=== PATIENT | female | born 1990 | race Caucasian/White ===

== ENCOUNTER 2017-01-08 20:26 | Emergency (ER) | payer MEDICAID ==
[~2017-01-08 20:26] MED LIST: AMOXicillin 250 MG CAP ONE
== END 2017-01-08 21:03 | disposition home or self-care (01) ==
LOC: MADERS 20:26
DX: O99.512 Diseases of the respiratory system complicating pregnancy, second trimester (principal); J01.90 Acute sinusitis, unspecified; Z3A.16 16 weeks gestation of pregnancy
CPT/HCPCS: 99283

== ENCOUNTER 2021-08-18 18:08 | Emergency (ER) | payer OTHER, SELFPAY ==
[2021-08-18] MEDS ORDERED: Aspirin Chewable 81 MG TAB ONE (19:06)
[2021-08-18 19:18] LABS: BHCG - Serum Negative (NEGATIVE); Pregs Control Background? CLEAR/WHITE (CLR/WHITE); Pregs Control Bar Appear? YES (CONTROL BAR)
[2021-08-18 19:28] LABS: ALT (SGPT) 21 U/L (8-55); AST (SGOT) 22 U/L (5-34); Albumin 4.1 g/dL (3.5-5.0); Alkaline Phosphatase 70 U/L (40-110); Anion Gap 13 mmol/L (10-20); BUN (Urea Nitrogen) 6 mg/dL (7.0-18.7); Bilirubin, Total 0.2 mg/dL (0.2-1.2); Calc. Creatinine Clearance 0 mL/min (70-130); Calcium 9.2 mg/dL (7.8-10.44); Carbon Dioxide 25 mmol/L (22-29); Chloride 108 mmol/L (98-107); Estimated GFR 104; Globulin 3.1 g/dL (2.4-3.5); Glucose 103 mg/dL (70-105); Potassium 4.4 mmol/L (3.5-5.1); Protein, Total 7.2 g/dL (6.0-8.3); Sodium 142 mmol/L (136-145)
[2021-08-18 19:29] LABS: Hemoglobin 13.3 g/dL (12.0-16.0); Mean Corpuscular HGB CONC 31.8 g/dL (32.0-36.0); Mean Corpuscular Volume 84.9 fL (78.0-98.0); Mean Platelet Volume 9.3 fL (7.4-10.4); Platelet Count 159 thou/uL (130-400); RBC Distribution Width 12.8 % (11.5-14.5); Red Blood Cell (RBC) Count 4.91 mill/uL (4.20-5.40); White Blood Cell (WBC) Count 2.6 thou/uL (4.8-10.8)
[2021-08-18 19:30] LABS: Band 3 % (5-11); Eosinophils 7 % (0-10); Lymphocytes 39 % (21-51); MDiff Complete? YES; Metamyelocyte 1 % (0-0); Monocytes 3 % (0-10); Neutrophil 31 % (42-75); Platelet Morphology Comment Appears Adequate; RBC Morphology Normal; Reactive Lymphocytes 16 % (0-10)
== END 2021-08-18 19:55 | disposition home or self-care (01) ==
LOC: MADERS 18:08
DX: U07.1 COVID-19 (principal); A08.4 Viral intestinal infection, unspecified
CPT/HCPCS: 36415; 71045; 80053; 84484; 84703; 85025; 93005; 94760

== ENCOUNTER 2023-07-06 13:05 | Emergency (ER) | payer SELFPAY ==
[2023-07-06] MEDS ORDERED: Lactated Ringer's 1,000 ML ONE (14:47)
[2023-07-06] MEDS ORDERED: Ondansetron PF 4 MG/2 ML Vial ONE (14:47)
[2023-07-06] MEDS ORDERED: Thiamine HCl 200 MG/2 ML VIAL ONE (14:47)
[2023-07-06 15:07] LABS: #Basophils 0.1 thou/uL (0.0-0.2); #Eosinphils 0.1 thou/uL (0.0-0.7); #Lymphocytes 1.3 thou/uL (1.20-3.40); #Monocytes 0.5 thou/uL (0.11-0.59); #Neutrophils 5.3 thou/uL (1.40-6.50); %Basophils 0.9 % (0.0-1.0); %Eosinophils 1.9 % (0.0-10.0); %Lymphocytes 18.2 % (21.0-51.0); %Monocytes 6.7 % (0.0-10.0); %Neutrophils 72.4 % (42.0-75.0); Hematocrit 38.1 % (36.0-47.0); Mean Corpuscular HGB CONC 31.4 g/dL (32.0-36.0); Mean Corpuscular Hemoglobin 28.1 pg (27.0-31.0); Mean Corpuscular Volume 89.7 fl (78.0-98.0); Mean Platelet Volume 7.7 fL (7.4-10.4); Platelet Count 170 10x3/uL (130-400); RBC Distribution Width 12.7 % (11.5-14.5); Red Blood Cell (RBC) Count 4.25 mill/uL (4.20-5.40); White Blood Cell (WBC) Count 7.3 10x3/uL (4.8-10.8)
[2023-07-06 15:22] LABS: ALT (SGPT) 15 U/L (8-55); AST (SGOT) 16 U/L (5-34); Albumin 3.8 g/dL (3.5-5.0); Alkaline Phosphatase 62 U/L (40-110); Anion Gap 14 mmol/L (10-20); BUN (Urea Nitrogen) 5 mg/dL (7.0-18.7); Bilirubin, Total 0.3 mg/dL (0.2-1.2); Calc. Creatinine Clearance 0 mL/min (70-130); Calcium 8.8 mg/dL (7.8-10.44); Carbon Dioxide 20 mmol/L (22-29); Chloride 105 mmol/L (98-107); Estimated GFR 120; Glucose 86 mg/dL (70-105); Lipase 45 U/L (8-78); Potassium 3.4 mmol/L (3.5-5.1); Protein, Total 6.8 g/dL (6.0-8.3); Sodium 136 mmol/L (136-145)
[2023-07-06 15:49] LABS: Influenza A by NAA Not Detected (NotDetected); Influenza B by NAA Not Detected (NotDetected); SARS-CoV-2 NAA Rapid Test Not Detected (NotDetected)
[2023-07-06 15:55] LABS: Bilirubin Negative (Negative); Blood, Urine Negative (Negative); Glucose, Urine (Dipstick) Negative (Negative); Ketone, Urine Negative (Negative); Leukocyte Trace (Negative); Nitrite Negative (Negative); Protein, Urine (Dipstick) Negative (Neg-Trace); Specific Gravity, Urine 1.015 (1.005-1.030); Urobilinogen 0.2 mg/dL (Less than 2); pH, Urine 6.5 (5.0-9.0)
[2023-07-06 15:56] LABS: Clarity Hazy (Clear)
[2023-07-06 16:01] LABS: Bacteria/HPF 2+ HPF (None Seen); CAUTI Indications for Culture Dysuria,urgency,freq; RBC/HPF None Seen HPF (0-3); WBC/HPF 0-3 HPF (0-3)
[2023-07-06 16:02] LABS: Urine Culture Reflex No No
[2023-07-06] MEDS ORDERED: Potassium Chloride 20 MEQ TAB ONE (16:12)
== END 2023-07-06 16:41 | disposition home or self-care (01) ==
LOC: MADERS 13:05
DX: O99.891 Other specified diseases and conditions complicating pregnancy (principal); O23.91 Unspecified genitourinary tract infection in pregnancy, first trimester; R11.0 Nausea; R82.71 Bacteriuria; E87.6 Hypokalemia; E86.0 Dehydration; Z3A.12 12 weeks gestation of pregnancy
CPT/HCPCS: 80053; 81001; 83690; 85025; 93005; 94760; 96361; 96374; 96375; J2405; J3411; J7120